=== PATIENT | male | born 1985 | race Caucasian/White ===

== ENCOUNTER 2019-04-12 09:18 | Emergency (ER) | payer OTHER ==
[~2019-04-12] VITALS: Ht 177.8 cm; Wt 117.9 kg
[2019-04-12] MEDS ORDERED: TESSALON PERLE100 MG PO (10:37)
[2019-04-12 11:16] VITALS: BP 151/73
== END 2019-04-12 11:16 | disposition home or self-care (01) ==
LOC: ER 09:18
DX: J06.9 Acute upper respiratory infection, unspecified (principal); J02.9 Acute pharyngitis, unspecified